=== PATIENT | female | born 1950 | race Caucasian/White ===

== ENCOUNTER 2016-06-08 17:38 | Emergency (ER) | payer OTHER ==
[~2016-06-08] VITALS: Ht 162.6 cm; Wt 62.5 kg
[2016-06-08 17:39] VITALS: BP 118/78; PULSE 77; RESP 20; TEMP 97.6; O2SAT 100
--- NOTE | 2016-06-08 18:08 | PD ---
Physical Exam Time Seen by Provider: 18:07 Narrative 66 y/o female presents for evaluation of abdominal pain for one day. Endorses some n/v/d. Denies fevers. vss Seen at triage desk. Awaiting bed placement. Data Data Last Documented VS Vital Signs Date Time Temp Pulse Resp B/P Pulse Ox O2 Delivery O2 Flow Rate FiO2 06/08/16 17:39 97.6 77 20 118/78 100 Room Air [facility] Medical Record Reviewed: Yes Supervised Visit with RONI: Renan Olvera June 08, 2016 18:08
[2016-06-08] MEDS ORDERED: SODIUM CHLOR 0.9% 1000 ML INJ 1,000 ML IV SCH (20:02)
[2016-06-08] MEDS ORDERED: ATEN50TA PO (20:04)
[2016-06-08] MEDS ORDERED: TRAM50TA PO (20:04)
[2016-06-08] MEDS ORDERED: SOMA250T PO (20:04)
[2016-06-08] MEDS ORDERED: DIAZ5TAB PO (20:04)
[2016-06-08] MEDS ORDERED: SODIUM CHLORIDE 0.9% FLUSH 10 ML FLUSH IV FLUSH PRN (20:15)
[2016-06-08] MEDS ORDERED: SODIUM CHLOR 0.9% 1000 ML INJ 1,000 ML IV ONE (20:15)
[2016-06-08] MEDS ORDERED: FAMOTIDINE 20 MG/2 ML VIAL IV PUSH ONE (20:15)
[2016-06-08] MEDS ORDERED: ONDANSETRON HCL 4 MG/2 ML VIAL IVP ONE (20:15)
[2016-06-08] MEDS ORDERED: IOHEXOL 350 MG/ML 10 ML VIAL (for RAD DIAG) IV ONE (20:19)
--- NOTE | 2016-06-08 20:25 | RADRPT ---
EXAM DATE/TIME: 06/08/2016 20:05 [facility] COMPARISON: No previous studies available for comparison. INDICATIONS : Chest and abdominal pain. MEDICAL HISTORY : None. SURGICAL HISTORY : None. ENCOUNTER: Initial ACUITY: 1 day PAIN SCORE: 7/10 LOCATION: Bilateral lower chest FINDINGS: A single view of the chest demonstrates the lungs to be symmetrically aerated without evidence of mas s, infiltrate or effusion. The cardiomediastinal contours are unremarkable. Osseous structures are intact. CONCLUSION: No evidence of acute cardiopulmonary disease. Seun Mcdaniels MD on June 08, 2016 at 20:22 Board Certified Radiologist. This report was verified electronically.
--- NOTE | 2016-06-08 20:37 | RADRPT ---
EXAM DATE/TIME: 06/08/2016 20:20 [facility] COMPARISON: No previous studies available for comparison. INDICATIONS : Left radiating to medial abdominal pain with nausea, vomting, and diarrhea. IV CONTRAST: 85 cc Omnipaque 350 (iohexol) IV ORAL CONTRAST: No oral contrast ingested. RADIATION DOSE: 5.85 CTDIvol (mGy) MEDICAL HISTORY : Cardiovascular disease. Irritable bowel syndrome. SURGICAL HISTORY : Appendectomy. Cholecystectomy. ENCOUNTER: Initial ACUITY: 1 day PAIN SCALE: 4/10 LOCATION: Left medial abdomen TECHNIQUE: Volumetric scanning of the abdomen and pelvis was performed. Using automated exposure control and ad justment of the mA and/or kV according to patient size, radiation dose was kept as low as reasonably achievable to obtain optimal diagnostic quality images. FINDINGS: LOWER LUNGS: The visualized lower lungs are clear. LIVER: Homogeneous density without lesion. There is no dilation of the biliary tree previous cholecystectom y. SPLEEN: Normal size without lesion. PANCREAS: Within normal limits. KIDNEYS: Normal in size and shape. There is no mass, stone or hydronephrosis. ADRENAL GLANDS: Within normal limits. VASCULAR: There is no aortic aneurysm. BOWEL/MESENTERY: The stomach, small bowel, and colon demonstrate no acute abnormality. There is no free intraperitone al air or fluid. ABDOMINAL WALL: Within normal limits. RETROPERITONEUM: There is no lymphadenopathy. BLADDER: No wall thickening or mass. REPRODUCTIVE: Within normal limits. INGUINAL: There is no lymphadenopathy or hernia. MUSCULOSKELETAL: No acute bony abnormality demonstrated. CONCLUSION: No acute abnormality demonstrated. Seun Mcdaniels MD on June 08, 2016 at 20:33 Board Certified Radiologist. This report was verified electronically.
--- NOTE | 2016-06-08 20:38 | PD ---
HPI Chief Complaint: Abdominal Pain Time Seen by Provider: 19:52 Travel History International Travel<30 days: No Contact w/Intl Traveler<30days: No Traveled to known affect area: No History of Present Illness HPI Patient is a 66-year-old female who presents to emergency with complaint of abdominal pain. That she has history of irritable bowel syndrome, reports that for the past 3 days, she has been having diarrhea. Patient reports that she has about one episode of diarrhea every 2 hours. Patient reports no sick contacts, reports no recent antibiotics. Reports that she normally has diarrhea with her IBS, reports that symptoms have been worse over the past 2 days. Patient reports that after she came home from the dentist this afternoon , she began to have increased upper abdominal pain. Reports that she felt nauseous but has not had any episodes of emesis. Patient denies any fevers or chills, denies chest pain or shortness of breath. Patient with no recent travels or trips. PFSH Past Medical History Heart Rhythm Problems: Yes (SVT & VTACH) Cardiovascular Problems: Yes (SVT;ARRYTHMIAS) Gastrointestinal Disorders: Yes (IBS) Past Surgical History Appendectomy: Yes Cholecystectomy: Yes Social History Alcohol Use: Yes (OCC) Tobacco Use: No Substance Use: No Allergies-Medications (Allergen,Severity, Reaction): Coded Allergies: No Known Allergies (Unverified , 06/08/16) Reported Meds & Prescriptions Reported Meds & Active Scripts Active Reported Diazepam 5 Mg Tab 5 Mg PO TID PRN Tramadol (Tramadol HCl) 50 Mg Tab 50 Mg PO Q6H PRN Soma (Carisoprodol) 250 Mg Tab 250 Mg PO QID PRN Atenolol 50 Mg Tab 50 Mg PO DAILY Review of Systems General / Constitutional: No: Fever, Chills Eyes: No: Visual changes HENT: No: Headaches Cardiovascular: No: Chest Pain or Discomfort Respiratory: No: Shortness of Breath Gastrointestinal: Positive: Nausea, Vomiting, Diarrhea, Abdominal Pain, No: Constipation Genitourinary: No: Dysuria Musculoskeletal: No: Pain Skin: No Rash Neurologic: No: Weakness Psychiatric: No: Depression Endocrine: No: Polydipsia Hematologic/Lymphatic: No: Easy Bruising Physical Exam Narrative GENERAL: mild distress SKIN: Focused skin assessment warm/dry. HEAD: Atraumatic. Normocephalic. EYES: Pupils equal and round. No scleral icterus. No injection or drainage. ENT: No nasal bleeding or discharge. Mucous membranes pink and moist. NECK: Trachea midline. No JVD. CARDIOVASCULAR: Regular rate and rhythm. No murmur appreciated. RESPIRATORY: No accessory muscle use. Clear to auscultation. Breath sounds equal bilaterally. GASTROINTESTINAL: Abdomen soft, diffusely tender MUSCULOSKELETAL: No obvious deformities. No clubbing. No cyanosis. No edema. NEUROLOGICAL: Awake and alert. No obvious cranial nerve deficits. Motor grossly within normal limits. Normal speech. PSYCHIATRIC: Appropriate mood and affect; insight and judgment normal. Data Data Last Documented VS Vital Signs Date Time Temp Pulse Resp B/P Pulse Ox O2 Delivery O2 Flow Rate FiO2 06/08/16 17:39 97.6 77 20 118/78 100 Room Air Orders Complete Blood Count With Diff (06/08/16 20:02) Comprehensive Metabolic Panel (06/08/16 20:02) Lipase (06/08/16 20:02) Prothrombin Time / Inr (Pt) (06/08/16 20:02) Act Partial Throm Time (Ptt) (06/08/16 20:02) Urinalysis - C+S If Indicated (06/08/16 20:02) Ct Abd/Pel W Iv Contrast(Rout) (06/08/16 20:02) Iv Access Insert/Monitor (06/08/16 20:02) Ondansetron Inj (Zofran Inj) (06/08/16 20:15) Sodium Chlor 0.9% 1000 Ml Inj (Ns 1000 M (06/08/16 20:02) Sodium Chloride 0.9% Flush (Ns Flush) (06/08/16 20:15) Electrocardiogram (06/08/16 20:02) Chest, Single Ap (06/08/16 20:02) Famotidine Inj (Pepcid Inj) (06/08/16 20:15) Sodium Chlor 0.9% 1000 Ml Inj (Ns 1000 M (06/08/16 20:15) Stool Ova And Parasite Screen (06/08/16 20:02) C Diff Toxin Pcr (06/08/16 20:02) Iohexol 350 Inj (Omnipaque 350 Inj) (06/08/16 20:19) Labs Laboratory Tests Test 06/08/16 20:00 White Blood Count 6.2 TH/MM3 Red Blood Count 4.29 MIL/MM3 Hemoglobin 13.6 GM/DL Hematocrit 39.7 % Mean Corpuscular Volume 92.6 FL Mean Corpuscular Hemoglobin 31.6 PG Mean Corpuscular Hemoglobin 34.1 % Concent Red Cell Distribution Width 12.7 % Platelet Count 233 TH/MM3 Mean Platelet Volume 9.5 FL Neutrophils (%) (Auto) 61.6 % Lymphocytes (%) (Auto) 30.3 % Monocytes (%) (Auto) 6.6 % Eosinophils (%) (Auto) 1.1 % Basophils (%) (Auto) 0.4 % Neutrophils # (Auto) 3.8 TH/MM3 Lymphocytes # (Auto) 1.9 TH/MM3 Monocytes # (Auto) 0.4 TH/MM3 Eosinophils # (Auto) 0.1 TH/MM3 Basophils # (Auto) 0.0 TH/MM3 CBC Comment DIFF FINAL Differential Comment Prothrombin Time 10.3 SEC Prothromb Time International 0.9 RATIO Ratio Activated Partial 24.7 SEC Thromboplast Time Sodium Level 140 MEQ/L Potassium Level 3.6 MEQ/L Chloride Level 103 MEQ/L Carbon Dioxide Level 28.7 MEQ/L Anion Gap 8 MEQ/L Blood Urea Nitrogen 18 MG/DL Creatinine 0.77 MG/DL Estimat Glomerular Filtration 75 ML/MIN Rate Random Glucose 79 MG/DL Calcium Level 9.0 MG/DL Total Bilirubin 0.4 MG/DL Aspartate Amino Transf 27 U/L (AST/SGOT) Alanine Aminotransferase 32 U/L (ALT/SGPT) Alkaline Phosphatase 101 U/L Total Protein 7.6 GM/DL Albumin 4.2 GM/DL Lipase 106 U/L [facility] Medical Decision Making Medical Screen Exam Complete: Yes Emergency Medical Condition: Yes Interpretation(s) Vital Signs Date Time Temp Pulse Resp B/P Pulse Ox O2 Delivery O2 Flow Rate FiO2 06/08/16 17:39 97.6 77 20 118/78 100 Room Air Differential Diagnosis Gastroenteritis, acute gastritis, electrolyte abnormality, C. difficile, viral syndrome, gastric ulcer Narrative Course Patient is a 66-year-old female who presents to emergency room with complaints of abdominal pain with diarrhea for the past 3 days. Patient reports history of IBS in the past, reports that symptoms are worse over the past 3 days than baseline. Labs and studies as well as IVF ordered. Stool cultures ordered Vital Signs Date Time Temp Pulse Resp B/P Pulse Ox O2 Delivery O2 Flow Rate FiO2 06/08/16 17:39 97.6 77 20 118/78 100 Room Air Laboratory Tests Test 06/08/16 20:00 White Blood Count 6.2 TH/MM3 (4.0-11.0) Red Blood Count 4.29 MIL/MM3 (4.00-5.30) Hemoglobin 13.6 GM/DL (11.6-15.3) Hematocrit 39.7 % (35.0-46.0) Mean Corpuscular Volume 92.6 FL (80.0-100.0) Mean Corpuscular Hemoglobin 31.6 PG (27.0-34.0) Mean Corpuscular Hemoglobin 34.1 % Concent (32.0-36.0) Red Cell Distribution Width 12.7 % (11.6-17.2) Platelet Count 233 TH/MM3 (150-450) Mean Platelet Volume 9.5 FL (7.0-11.0) Neutrophils (%) (Auto) 61.6 % (16.0-70.0) Lymphocytes (%) (Auto) 30.3 % (9.0-44.0) Monocytes (%) (Auto) 6.6 % (0.0-8.0) Eosinophils (%) (Auto) 1.1 % (0.0-4.0) Basophils (%) (Auto) 0.4 % (0.0-2.0) Neutrophils # (Auto) 3.8 TH/MM3 (1.8-7.7) Lymphocytes # (Auto) 1.9 TH/MM3 (1.0-4.8) Monocytes # (Auto) 0.4 TH/MM3 (0-0.9) Eosinophils # (Auto) 0.1 TH/MM3 (0-0.4) Basophils # (Auto) 0.0 TH/MM3 (0-0.2) CBC Comment DIFF FINAL Differential Comment Prothrombin Time 10.3 SEC (9.8-11.6) Prothromb Time International 0.9 RATIO Ratio Activated Partial 24.7 SEC Thromboplast Time (24.3-30.1) Sodium Level 140 MEQ/L (136-145) Potassium Level 3.6 MEQ/L (3.5-5.1) Chloride Level 103 MEQ/L (98-107) Carbon Dioxide Level 28.7 MEQ/L (21.0-32.0) Anion Gap 8 MEQ/L (5-15) Blood Urea Nitrogen 18 MG/DL (7-18) Creatinine 0.77 MG/DL (0.50-1.00) Estimat Glomerular Filtration 75 ML/MIN (>89) Rate Random Glucose 79 MG/DL (74-106) Calcium Level 9.0 MG/DL (8.5-10.1) Total Bilirubin 0.4 MG/DL (0.2-1.0) Aspartate Amino Transf 27 U/L (15-37) (AST/SGOT) Alanine Aminotransferase 32 U/L (10-53) (ALT/SGPT) Alkaline Phosphatase 101 U/L (45-117) Total Protein 7.6 GM/DL (6.4-8.2) Albumin 4.2 GM/DL (3.4-5.0) Lipase 106 U/L (73-393) Last Impressions Chest X-Ray 06/08/162001 Signed Impressions: Service Date/Time: Wednesday, June 08, 2016 20:05 - CONCLUSION: No evidence of acute cardiopulmonary disease. Seun Mcdaniels MD Abdomen/Pelvis CT 06/08/162001 Signed Impressions: Service Date/Time: Wednesday, June 08, 2016 20:20 - CONCLUSION: No acute abnormality demonstrated. Seun Mcdaniels MD Patient reevaluated, patient feeling much better at this time. Denies soft, nontender, nondistended, no peritoneal signs. Patient unable to give stool samples at this time. Signs and symptoms of when to return to the emergency room was reviewed patient in detail. 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
[2016-06-08 20:56] LABS: AUTOMATED NEUTROPHIL # 3.8 TH/MM3 (1.8-7.7); BASOPHIL % 0.4 % (0.0-2.0); EOSINOPHIL # 0.1 TH/MM3 (0-0.4); EOSINOPHIL % 1.1 % (0.0-4.0); HEMATOCRIT 39.7 % (35.0-46.0); HEMO FLAGS DIFF FINAL; LYMPH % 30.3 % (9.0-44.0); LYMPHOCYTE # 1.9 TH/MM3 (1.0-4.8); MEAN CELL VOLUME 92.6 FL (80.0-100.0); MEAN CORPUSCULAR HEMOGLOBIN 31.6 PG (27.0-34.0); MEAN CORPUSCULAR HGB CONC 34.1 % (32.0-36.0); MONO % 6.6 % (0.0-8.0); NEUT % 61.6 % (16.0-70.0); PLATELET COUNT 233 TH/MM3 (150-450); RED BLOOD COUNT 4.29 MIL/MM3 (4.00-5.30); RED CELL DISTRIBUTION WIDTH 12.7 % (11.6-17.2); WHITE BLOOD COUNT 6.2 TH/MM3 (4.0-11.0)
[2016-06-08 21:01] LABS: APTT (PATIENT) 24.7 SEC (24.3-30.1); INTERNATIONAL NORMALIZED RATIO 0.9 RATIO; PROTHROMBIN TIME - PATIENT 10.3 SEC (9.8-11.6)
[2016-06-08 21:21] LABS: ANION GAP 8 MEQ/L (5-15); AST (GOT) 27 U/L (15-37); BICARBONATE 28.7 MEQ/L (21.0-32.0); BLOOD UREA NITROGEN 18 MG/DL (7-18); CHLORIDE 103 MEQ/L (98-107); GLOMERULAR FILTRATION RATE 75 ML/MIN (>89); POTASSIUM 3.6 MEQ/L (3.5-5.1); SODIUM (NA) 140 MEQ/L (136-145)
[2016-06-08 21:24] LABS: ALKALINE PHOSPHATASE 101 U/L (45-117); ALT (GPT) 32 U/L (10-53); TOTAL BILIRUBIN ADULT 0.4 MG/DL (0.2-1.0)
[2016-06-08] MEDS ORDERED: BENT20TA PO (21:56)
[2016-06-08] MEDS ORDERED: ZOFR4TAB3 SL (21:56)
[2016-06-08] MEDS ORDERED: PROT40TA PO (21:56)
--- NOTE | 2016-06-08 22:32 | EKG ---
Date Performed: 06/08/2016 Time Performed: 20:47:32 PTAGE: 66 years EKG: ECTOPIC ATRIAL RHYTHM ABNORMAL RHYTHM ECG PREVIOUS TRACING : 06/08/2016 20.47 No significant change from previous tracing noted. DOCTOR: Олег Maldonado Interpretating Date/Time 06/10/2016 06:47:21
== END 2016-06-08 22:30 | disposition home or self-care (01) ==
LOC: NEPD 17:38
DX: R10.9 Unspecified abdominal pain (principal); R19.7 Diarrhea, unspecified; R11.2 Nausea with vomiting, unspecified; K58.9 Irritable bowel syndrome, unspecified; R94.31 Abnormal electrocardiogram [ECG] [EKG]
CPT/HCPCS: 71010; 74177; 80053; 83690; 85025; 85610; 85730; 93005; 96361; 96374; 96375; 99284; J2405; J7030; Q9967